=== PATIENT | female | born 1955 | race Caucasian/White ===

== ENCOUNTER 2022-05-02 06:02 | Inpatient (IN) | payer OTHER ==
[2022-04-29 11:44] VITALS: BMI 38.2
[2022-05-02] MEDS ORDERED: TRANEXAMIC ACID 1000 MG/10 ML VIAL ONE ×2 (07:09→08:31)
[2022-05-02] MEDS ORDERED: VANCOMYCIN 1,000 MG VIAL (RESTRICTED TO ID ONLY) ONE ×2 (07:09→07:32)
[2022-05-02] MEDS ORDERED: MIDAZOLAM HCL 2 MG/2 ML SINGLE DOSE VIAL ONE (07:31)
[2022-05-02] MEDS ORDERED: ONDANSETRON 4 MG/2 ML VIAL ONE ×2 (07:32→10:17)
[2022-05-02] MEDS ORDERED: ceFAZolin SODIUM 1 GM VIAL ONE (07:32)
[2022-05-02] MEDS ORDERED: PROPOFOL 40 ML ONE (07:32)
[2022-05-02] MEDS ORDERED: SUCCINYLCHOLINE CHLORIDE 200 MG/10 ML SYRINGE ONE (07:32)
[2022-05-02] MEDS ORDERED: DEXAMETHASONE SOD PHOSPHATE 4 MG/1 ML VIAL ONE ×2 (07:32→10:17)
[2022-05-02] MEDS ORDERED: ROCURONIUM BROMIDE 50 MG/5 ML SYRINGE ONE (07:32)
[2022-05-02] MEDS ORDERED: BUPIVACAINE HCL/PF 0.5% (5 MG/ML) 30 ML VIAL IJ ONE (07:50)
[2022-05-02] MEDS ORDERED: BUPIVACAINE LIPOSOME/PF (EXPAREL) 266 MG/20 ML VIAL ONE (07:50)
[2022-05-02] MEDS ORDERED: KETOROLAC TROMETHAMINE 30 MG/1 ML VIAL ONE (10:17)
[2022-05-02] MEDS ORDERED: GLYCOPYRROLATE 0.2 MG/1 ML VIAL ONE ×2 (10:22→10:23)
[2022-05-02] MEDS ORDERED: NEOSTIGMINE METHYLSULFATE 0.5 MG/1 ML - 10 ML MDV ONE (10:22)
[2022-05-02] MEDS ORDERED: ONDANSETRON 4 MG/2 ML VIAL IVPUSH PRN (11:00)
[2022-05-02] MEDS ORDERED: LACTATED RINGERS SOLUTION 1,000 ML IV SCH (11:00)
[2022-05-02] MEDS ORDERED: MAGNESIUM HYDROX 2400MG/30ML ORAL SUSPENSION 30 ML CUP PO PRN (11:00)
[2022-05-02] MEDS ORDERED: MAG HYDROX/AL HYDROX/SIMETH 30 ML UNIT-DOSE CUP PO PRN (11:00)
[2022-05-02] MEDS ORDERED: oxyCODONE HCL 5 MG TABLET PO PRN ×2 (11:21)
[2022-05-02] MEDS: ACETAMINOPHEN 1000 MG/100 ML BAG IVPB ONE ×2 (11:30→13:50)
[2022-05-02] MEDS: CEFAZOLIN SODIUM 2 GM in DEXTROSE 5%-WATER 100 ML IVPB SCH (16:17)
[2022-05-02] MEDS: ACETAMINOPHEN 500 MG TABLET (FP) PO SCH (17:45)
[2022-05-02] MEDS ORDERED: CEFAZOLIN SODIUM 2 GM in DEXTROSE 5%-WATER 100 ML IVPB SCH (18:00)
[2022-05-02] MEDS ORDERED: VANCOMYCIN 1 GM in D5W (PRE-DOCKED) 1,000 MG/250 ML IVPB ONE (20:30)
[2022-05-02] MEDS: ASCORBIC ACID 500 MG TABLET (FP) PO SCH (21:03)
[2022-05-02] MEDS: SENNOSIDES/DOCUSATE COMBO (SENNA PLUS) TABLET (UD) PO SCH (21:03)
[2022-05-02] MEDS ORDERED: GABAPENTIN 300 MG CAPSULE PO SCH (22:00)
[2022-05-02] MEDS ORDERED: SODIUM CHLORIDE 500 ML IV STA (22:06)
[2022-05-03] MEDS: CEFAZOLIN SODIUM 2 GM in DEXTROSE 5%-WATER 100 ML IVPB SCH ×2 (01:07→08:49)
[2022-05-03] MEDS: ACETAMINOPHEN 500 MG TABLET (FP) PO SCH ×3 (01:07→12:01)
[2022-05-03 07:37] LABS: HEMATOCRIT 36.6 % (32.4-45.2); HEMOGLOBIN 12.7 G/dL (10.7-15.3); MCH 31.8 pg (25.7-33.7); MCHC 34.8 g/dl (32.0-36.0); MEAN CELL VOLUME 91.6 fl (80-96); PLATELET COUNT 174.5 10^3/uL (134-434); RDW 13.7 % (11.6-15.6); WHITE BLOOD COUNT 12.5 10^3/uL (4.0-10.8)
[2022-05-03 07:38] LABS: CALCIUM 8.5 mg/dl (8.5-10); CREATININE 0.6 mg/dl (0.55-1.3)
[2022-05-03] MEDS ORDERED: ASPIRIN 325 MG TABLET PO SCH (08:00)
[2022-05-03 08:55] VITALS: RESP 18
[2022-05-03] MEDS: SENNOSIDES/DOCUSATE COMBO (SENNA PLUS) TABLET (UD) PO SCH (09:17)
[2022-05-03] MEDS: ASCORBIC ACID 500 MG TABLET (FP) PO SCH (09:17)
[2022-05-03] MEDS ORDERED: amLODIPine BESYLATE 10 MG TABLET (FP) PO SCH (10:00)
[2022-05-03] MEDS ORDERED: MULTIVITAMINS (DAILY MVI) TABLET (FP) PO SCH (10:00)
[2022-05-03] MEDS ORDERED: PANTOPRAZOLE 40 MG TABLET PO SCH (10:00)
[2022-05-03] MEDS ORDERED: CHOLECALCIFEROL (VIT D3) 1,000 UNIT (25 MCG) TABLET PO SCH (10:00)
[2022-05-03] MEDS ORDERED: LOSARTAN 50MG/HCTZ 12.5MG 1 TAB PO SCH (10:00)
[2022-05-03] MEDS ORDERED: PATIENT'S OWN MEDICATION (NON-FORMULARY) (Empagliflozin [Jardiance] 10 MG Tablet) PO SCH (10:00)
[2022-05-03] MEDS ORDERED: CELECOXIB 200 MG CAPSULE PO SCH (10:00)
[2022-05-03] MEDS ORDERED: PATIENT'S OWN MEDICATION (NON-FORMULARY) (Losartan/Hydrochlorothiazide [Losartan-Hctz 100- PO SCH (10:00)
[2022-05-03 14:19] VITALS: BP 94/55; PULSE 59; TEMP 98.7
[2022-05-03] MEDS ORDERED: ATORVASTATIN CA 40 MG TABLET (FP) PO SCH (22:00)
== END 2022-05-03 16:27 | disposition home or self-care (01) | DRG 315 ==
LOC: FM/S 06:02
PROVIDERS: ADMIT Orthopaedic Surgery; ATTEND Internal Medicine
PROC: 0LS40ZZ Reposition Left Upper Arm Tendon, Open Approach (ICD-10-PCS; 2022-05-02)
PROC: 0RHK04Z Insertion of Internal Fixation Device into Left Shoulder Joint, Open Approach (ICD-10-PCS; 2022-05-02)
PROC: 0RRK00Z Replacement of Left Shoulder Joint with Reverse Ball and Socket Synthetic Substitute, Open Approach (ICD-10-PCS; principal; 2022-05-02 08:40)
DX: M75.102 Unspecified rotator cuff tear or rupture of left shoulder, not specified as traumatic (principal); M19.012 Primary osteoarthritis, left shoulder; M75.22 Bicipital tendinitis, left shoulder; I10 Essential (primary) hypertension; K21.9 Gastro-esophageal reflux disease without esophagitis; E11.9 Type 2 diabetes mellitus without complications; E78.5 Hyperlipidemia, unspecified; E66.9 Obesity, unspecified; Z68.38 Body mass index [BMI] 38.0-38.9, adult
CPT/HCPCS: 36415; 73030-TC-LT-FY; 80048; 82962; 85027; 88305-TC; 88311-TC; 94760; 97116-GP; 97162-GP; C1713; C1776